=== PATIENT | male | born 1930 | race Caucasian/White ===

== ENCOUNTER 2017-02-14 20:50 | Inpatient (IN) ==
[2017-02-15] MEDS ORDERED: Naloxone 0.4 MG/ML INJ IVP PRN (00:11)
[2017-02-15] MEDS ORDERED: *HR* Dextrose 50 % in Water (Syg) 50 ML SYRINGE IVP PRN (00:15)
[2017-02-15] MEDS ORDERED: Dextrose Gel 15 GM PO PRN ×2 (00:15)
[2017-02-15] MEDS ORDERED: D5% in Water 1,000 ML IVC PRN (00:15)
[2017-02-15] MEDS ORDERED: *HR* HYDROcodone/Acet 5/325 mg TABLET PO PRN (00:23)
[2017-02-15] MEDS: 0.9 % Sodium Chloride 1,000 ML IVC SCH ×2 (00:48→14:28)
[2017-02-15 01:33] LABS: Eosinophils % 0.1 %; Hemoglobin 10.6 g/dL (12.9-16.9); Immature Granulocytes % 0.5 % (0-4); Immature Platelets 2.1 % (1.1-6.1); Lymphocytes # 0.7 K/mcL (0.6-4.6); Lymphocytes % 6.9 %; Mean Corpuscular HGB Conc 33.1 g/dL (31.6-35.5); Mean Corpuscular Hemoglobin 29.4 pg (28.0-33.3); Mean Corpuscular Volume 88.9 fL (83.0-100.0); Mean Platelet Volume 9.7 fL (9.4-12.4); Monocytes # 1.1 K/mcL (0.0-1.3); Monocytes % 11.5 %; Platelet Count 166 K/mcL (140-400)
[2017-02-15 01:44] LABS: Calcium 8.5 mg/dL (8.6-10.8); Potassium 4.3 mEq/L (3.5-4.5)
--- NOTE | 2017-02-15 04:12 | Internal Med History&Physical ---
Date of Encounter: 02/14/17 Time of Encounter: 23:30 Assessment and Plan (1) Sepsis Current visit: No Status: Acute Patient meet criteria of sepsis with tachycardia, fever. Has elevated lactate level. - Goal directed fluid resuscitation started in [facility]. - Lactate level decreased to 1.3 from 5.7 - Continue antibiotic treatment and IV fluid. - Follow up blood culture and urine culture Qualifiers: Sepsis type: sepsis due to unspecified organism Qualified Code(s): A41.9 - Sepsis, unspecified organism (2) Diabetes Current visit: Yes Status: Acute Will cover patient with sliding scale Qualifiers: Diabetes mellitus type: type 2 Diabetes mellitus complication status: without complication Diabetes mellitus group home insulin use: without parachute mender use Qualified Code(s): E11.9 - Type 2 diabetes mellitus without complications (3) CAD (coronary artery disease) Current visit: Yes Status: Acute Patient denies chest pain. Continue home medications. Qualifiers: Coronary Disease-Associated Artery/Lesion type: [place] artery [place] vs. transplanted heart: [place] heart Associated angina: without angina Qualified Code(s): I25.10 - Atherosclerotic heart disease of [place] coronary artery without angina pectoris (4) UTI (urinary tract infection) Current visit: No Status: Resolved Urinalysis shows UTI. Patient has symptoms of sepsis. Blood culture and urine cultures sent in [facility] emergency room. Patient has history of UTI, his previous urine culture resulted reviewed, sensitive to Rocephin. We will continue Rocephin 2000 mg IV daily and a follow-up urine culture. Qualifiers: Urinary tract infection type: catheter-associated UTI Indwelling urinary catheter type: indwelling urethral catheter Encounter type: initial encounter Qualified Code(s): T83.511A - Infection and inflammatory reaction due to indwelling urethral catheter, initial encounter; N39.0 - Urinary tract infection , site not specified (5) DVT prophylaxis Current visit: Yes Status: Acute Heparin subcutaneously Internal Medicine - H&P: HPI Chief complaint: Altered mental status, fever Admitted From: Long-term Nursing Facility Plans for Post Hospital Care: Transfer Custodial Facility History of present illness: Mr. Nevarez is a 86 year old male transferred from [facility] emergency room for UTI and urosepsis. Patient is a alf resident. Patient is a poor historian. History mainly obtained from transfer documentation. Patient was found to have fever and altered mental status today in alf. He will send her to [facility] ER and was found UTI. CT abdomen has been done, shows urolithiasis but to no signs of obstruction. Patient was treated with IV fluid and antibiotics. His condition has improved after treatment. Patient denies fever, shortness of breath, chest pain, nausea, or abdominal pain. Patient has dysuria. Patient was transferred to our hospital for further management. According to alf transfer documentation, patient is full code. Past Med Surg Social Fam HX - Past Medical History Medical history: coronary artery disease, diabetes, hyperlipidemia, hypertension , thyroid disease, other Psychiatric history: depression - Past Surgical History Surgical History: angioplasty/stent, other - Social History Smoking Status: Never smoker Smokeless Tobacco Status: No Alcohol use: none Drug use: none - Family History Father Adopted: No Living Status: Internal Medicine - H&P: Meds Cyanocobalamin (Vitamin B-12) [Vitamin B12] 1,000 mcg PO DAILY 07/02/16 [History ] Docusate Sodium [Colace] 100 mg PO DAILY 07/02/16 [History] Gabapentin [Neurontin] 300 mg PO TID 07/02/16 [History] Isosorbide DInitrate [Isosorbide Dinitrate] 30 mg PO DAILY 07/02/16 [History] Melatonin 3 mg PO HS 07/02/16 [History] Sertraline [Zoloft] 50 mg PO DAILY 07/02/16 [History] Simvastatin [Zocor] 20 mg PO HS 07/02/16 [History] metFORMIN [Glucophage] 500 mg PO 0800 07/02/16 [History] Ergocalciferol (VITAMIN D2) [Vitamin D2] 50,000 unit PO QWEEK 11/02/16 [History] HYDROcodone/Acet 5/325 mg [[place] 5-325 mg] 1 tab PO Q6H PRN 11/02/16 [History] Iron Polysaccharide Complex [Ferrex 150] 150 mg PO DAILY 11/02/16 [History] Aspirin [Lo-Dose Aspirin EC] 81 mg PO DAILY 02/14/17 [History] Atorvastatin Calcium [Lipitor] 20 mg PO 02/14/17 [History] 3 Allergy/AdvReac Type Severity Reaction Status Date / Time Penicillins Allergy Rash Verified 11/02/16 21:08 All Systems PM: A 10-system review of systems was performed and is negative for pertinent findings except as documented above in the HPI. - Constitutional Vitals: Temp Pulse Resp BP Pulse Ox 100.1 F H 90 20 98/67 93 02/14/17 22:34 02/14/17 22:34 02/14/17 22:34 02/14/17 22:34 02/14/17 22:34 General appearance: Present: A&O X 1, no acute distress - Head Head exam: Present: atraumatic, normocephalic - Eye Eye exam: Present: PERRL, conjuntiva pink, sclera anicteric Pupils: Present: PERRL - Neck Neck exam general surgery: Present: supple, trachea midline. Absent: lymphadenopathy - Respiratory Respiratory exam: Present: CTAB. Absent: accessory muscle use, rales, rhonchi, wheezes - Cardiovascular Cardiovascular exam: Present: RRR, +S1, +S2. Absent: diastolic murmur, gallop, rubs, systolic murmur - GI/Abdominal GI/Abdominal exam: Present: normal bowel sounds, soft, no peritoneal signs. Absent: distended, tenderness - Extremities Exam Extremities exam: Present: warm, radial pulses palpable and symmetrical. Absent : calf tenderness, cyanotic, pedal edema - Neurological Exam Neurological exam: Present: CN II-XII intact, oriented X3, no focal deficits. Absent: pronater drift, facial droop, speech deficit - Skin Skin exam: Present: dry, intact Internal Med - H&P Results - Labs CBC & Chem 7: 02/15/17 01:24 02/15/17 01:24 Labs: Short CBC 02/15/17 Range/Units 01:24 WBC 9.9 D (4.3-11.1) K/mcL Hgb 10.6 L D (12.9-16.9) g/dL Hct 32.0 L (37.5-50.1) % Plt Count 166 (140-400) K/mcL Neutrophils # 8.0 (1.6-8.9) K/mcL BMP 02/15/17 01:24 Sodium 139 Potassium 4.3 Chloride 109 Carbon Dioxide 22 BUN 39 H Creatinine 1.40 H Glucose 155 H Calcium 8.5 L - EKG Data -: EKG Interpreted by Myself EKG shows normal: sinus rhythm Rate: tachycardia
[2017-02-15] MEDS: *HR* Heparin 5,000 UNIT/ML VIAL SQ SCH ×2 (05:51→16:43)
[2017-02-15] MEDS: Insulin LISPRO 300 UNITS/3 ML VIAL SQ SCH ×4 (09:44→21:44)
[2017-02-15] MEDS: Aspirin Enteric Coated 81 MG Tablet PO SCH (09:48)
[2017-02-15] MEDS: Isosorbide MONOnitrate (24 HR) 30 MG TAB.ER.24H PO SCH (09:48)
[2017-02-15] MEDS: Iron Polysaccharide Complex 150 MG CAPSULE PO SCH (09:48)
[2017-02-15] MEDS: Cyanocobalamin (B-12) 1,000 MCG TABLET PO SCH (09:48)
[2017-02-15] MEDS: Gabapentin 300 MG CAPSULE PO SCH ×3 (09:48→20:07)
--- NOTE | 2017-02-15 10:19 | Event Note ---
Date of Encounter: 02/15/17 Time of Encounter: 09:45 85-year-old male admitted early this morning after he presented with urinary tract infection to [facility] emergency room from senior care. Patient was found to have altered mental status in the senior care. Patient was admitted and has been given intravenous fluids and antibiotics. Currently, patient reports that he is feeling well. He denies any nausea or vomiting, abdominal pain, diarrhea or constipation. He denies any chest pain or difficult breathing. On exam, clear breath sounds bilaterally. No tenderness to palpation over the abdomen. Sotomayor catheter in place. Labs reviewed. Assessment/plan: 1. Urinary tract infection-continue intravenous cefazolin. Continue intravenous fluids. Follow-up urine culture sensitivities and adjust antibiotics accordingly. Patient is high risk due to need for intravenous antibody therapy and risk of sepsis and septic shock. 2. Patient did not have sepsis on admission. 3. Coronary artery disease 4. Diabetes mellitus type 2
[2017-02-15] MEDS: Melatonin 3 MG TABLET PO SCH (20:07)
[2017-02-16] MEDS: 0.9 % Sodium Chloride 1,000 ML IVC SCH (03:14)
[2017-02-16] MEDS: *HR* Heparin 5,000 UNIT/ML VIAL SQ SCH ×2 (05:22→17:07)
[2017-02-16] MEDS: Insulin LISPRO 300 UNITS/3 ML VIAL SQ SCH ×4 (10:05→21:22)
[2017-02-16] MEDS ORDERED: Ondansetron 4 MG/2 ML VIAL IVP PRN (10:07)
[2017-02-16] MEDS: Iron Polysaccharide Complex 150 MG CAPSULE PO SCH (11:17)
[2017-02-16] MEDS: Isosorbide MONOnitrate (24 HR) 30 MG TAB.ER.24H PO SCH (11:17)
[2017-02-16] MEDS: Cyanocobalamin (B-12) 1,000 MCG TABLET PO SCH (11:17)
[2017-02-16] MEDS: Gabapentin 300 MG CAPSULE PO SCH ×3 (11:17→21:20)
[2017-02-16] MEDS: Aspirin Enteric Coated 81 MG Tablet PO SCH (11:17)
[2017-02-16] MEDS: Acetaminophen 325 MG TABLET PO PRN (11:41)
--- NOTE | 2017-02-16 12:41 | Internal Med Progress Note ---
Date of Encounter: 02/16/17 Time of Encounter: 12:00 - Assessment and plan (1) UTI (urinary tract infection) Current Visit: Yes Status: Acute Assessment and plan: Due to proteus mirabilis Associated with Proteus bacteremia Continue rocephin Eventual PO abx. Total duration of 2 weeks. Moderate risk due to need for iv abx and close monitoring. Qualifiers: Urinary tract infection type: catheter-associated UTI Indwelling urinary catheter type: indwelling urethral catheter Encounter type: initial encounter Qualified Code(s): T83.511A - Infection and inflammatory reaction due to indwelling urethral catheter, initial encounter; N39.0 - Urinary tract infection , site not specified (2) BALA (acute kidney injury) Current Visit: Yes Status: Acute Assessment and plan: Likely due to dehydration. Patient received intravenous fluids yesterday. Monitor renal function, urine output. Avoid hypotension and nephrotoxic medications. (3) CAD (coronary artery disease) Current Visit: Yes Status: Chronic Assessment and plan: Stable. Continue current medications. Qualifiers: Coronary Disease-Associated Artery/Lesion type: [place] artery [place] vs. transplanted heart: [place] heart Associated angina: without angina Qualified Code(s): I25.10 - Atherosclerotic heart disease of [place] coronary artery without angina pectoris (4) Diabetes Current Visit: Yes Status: Chronic Assessment and plan: Controlled blood sugar. Continue current medications. Qualifiers: Diabetes mellitus type: type 2 Diabetes mellitus complication status: without complication Diabetes mellitus extermination inspector insulin use: without prison use Qualified Code(s): E11.9 - Type 2 diabetes mellitus without complications - Subjective Interval history: Patient reports lower abdominal pain. Denies nausea, vomiting. He is not aware of his last bowel movement. He denies any shortness of breath, cough or wheezing. - Constitutional Vitals: Temp Pulse Resp BP Pulse Ox 98.5 F 64 16 161/86 98 02/16/17 11:35 02/16/17 11:35 02/16/17 11:35 02/16/17 11:35 02/16/17 11:35 General appearance: Present: A&O X 1, mild distress, pleasant Exam: Gen.: Lying in bed. Mild distress. Chest: Clear to auscultation bilaterally. No adventitious sounds present. CVS: First and second heart sounds present. No murmurs, rubs or gallops. Abdomen: Soft, tender to palpation in the right and left lower quadrants without rebound tenderness, guarding or rigidity; nondistended. Bowel sounds present. No hepatosplenomegaly. Skin: No decubitus ulcers appreciated. Internal Medicine: Result - Labs CBC & Chem 7: 02/15/17 01:24 02/15/17 01:24 Consult Discharge Plan - Plan Referrals: Aleisha Kelley MD [Primary Care Provider] -
[2017-02-16] MEDS: Sennosides/Docusate Sodium TABLET PO SCH ×2 (13:08→21:20)
[2017-02-16] MEDS: Melatonin 3 MG TABLET PO SCH (21:20)
[2017-02-17 03:23] LABS: Basophils % 0.2 %; Eosinophils # 0.2 K/mcL (0.0-0.6); Eosinophils % 3.1 %; Hematocrit 32.7 % (37.5-50.1); Hemoglobin 10.8 g/dL (12.9-16.9); Immature Granulocytes % 0.4 % (0-4); Lymphocytes # 0.7 K/mcL (0.6-4.6); Lymphocytes % 13.8 %; Mean Corpuscular Hemoglobin 29.1 pg (28.0-33.3); Mean Corpuscular Volume 88.1 fL (83.0-100.0); Monocytes # 0.5 K/mcL (0.0-1.3); Monocytes % 10.2 %; Neutrophils # 3.5 K/mcL (1.6-8.9); Platelet Count 160 K/mcL (140-400); Red Blood Count 3.71 M/mcL (4.19-5.50); Segmented Neutrophils % 72.3 %
[2017-02-17 03:33] LABS: BUN/Creatinine Ratio 23 (6-26); Calcium 9.4 mg/dL (8.6-10.8); Carbon Dioxide 25 mEq/L (19-29); Chloride 109 mEq/L (98-109); Glucose 121 mg/dL (70-99); Osmolality,Calculated 299 (280-300); Potassium 4.2 mEq/L (3.5-4.5); Sodium 142 mEq/L (136-145); eGFR For African Americans > 60 (> 60); eGFR For Non-African Americans > 60 (> 60)
[2017-02-17 03:42] LABS: Blood Urea Nitrogen 23 mg/dL (8-26)
[2017-02-17] MEDS: *HR* Heparin 5,000 UNIT/ML VIAL SQ SCH (05:11)
[2017-02-17 07:22] VITALS: BP 167/92
[2017-02-17] MEDS: Insulin LISPRO 300 UNITS/3 ML VIAL SQ SCH ×2 (08:14→15:04)
[2017-02-17] MEDS: Iron Polysaccharide Complex 150 MG CAPSULE PO SCH (09:33)
[2017-02-17] MEDS: Aspirin Enteric Coated 81 MG Tablet PO SCH (09:33)
[2017-02-17] MEDS: Sennosides/Docusate Sodium TABLET PO SCH (09:33)
[2017-02-17] MEDS: Isosorbide MONOnitrate (24 HR) 30 MG TAB.ER.24H PO SCH (09:33)
[2017-02-17] MEDS: Gabapentin 300 MG CAPSULE PO SCH ×2 (09:34→15:08)
[2017-02-17] MEDS: Cyanocobalamin (B-12) 1,000 MCG TABLET PO SCH (09:34)
[2017-02-17] MEDS ORDERED: MOM Conc 10 ML UD.LIQ PO ONE (09:42)
[2017-02-17] MEDS: Acetaminophen 325 MG TABLET PO PRN (11:33)
[2017-02-17] MEDS ORDERED: amLODIPine 5 MG TABLET PO SCH (11:45)
--- NOTE | 2017-02-17 12:13 | Discharge Summary ---
Date of Encounter: 02/17/17 Time of Encounter: 10:30 - Discharge Diagnosis (1) UTI (urinary tract infection) Priority: Primary Status: Acute Qualifiers: Urinary tract infection type: catheter-associated UTI Indwelling urinary catheter type: indwelling urethral catheter Encounter type: initial encounter Qualified Code(s): T83.511A - Infection and inflammatory reaction due to indwelling urethral catheter, initial encounter; N39.0 - Urinary tract infection , site not specified (2) BALA (acute kidney injury) Priority: Secondary Status: Resolved (3) CAD (coronary artery disease) Priority: Secondary Status: Chronic Qualifiers: Coronary Disease-Associated Artery/Lesion type: [place] artery [place] vs. transplanted heart: [place] heart Associated angina: without angina Qualified Code(s): I25.10 - Atherosclerotic heart disease of [place] coronary artery without angina pectoris (4) Diabetes Priority: Secondary Status: Chronic Qualifiers: Diabetes mellitus type: type 2 Diabetes mellitus complication status: without complication Diabetes mellitus manager terminal insulin use: without correction use Qualified Code(s): E11.9 - Type 2 diabetes mellitus without complications - Discharge Medications Prescriptions: amLODIPine [Norvasc] 5 mg PO DAILY #60 tab Cefdinir [Omnicef] 300 mg PO BID #24 capsule Polyethylene Glycol 3350 [MiraLAX] 17 gm PO DAILY #30 Sennosides/Docusate Sodium [Senna Plus] 2 each PO BID #100 tab Home Medications: Cyanocobalamin (Vitamin B-12) [Vitamin B12] 1,000 mcg PO DAILY 07/02/16 [History ] Gabapentin [Neurontin] 300 mg PO TID 07/02/16 [History] Melatonin 3 mg PO HS 07/02/16 [History] Sertraline [Zoloft] 50 mg PO DAILY 07/02/16 [History] Ergocalciferol (VITAMIN D2) [Vitamin D2] 50,000 unit PO QWEEK 11/02/16 [History] HYDROcodone/Acet 5/325 mg [[place] 5-325 mg] 1 tab PO TID 11/02/16 [History] Iron Polysaccharide Complex [Ferrex 150] 150 mg PO DAILY 11/02/16 [History] Aspirin [Lo-Dose Aspirin EC] 81 mg PO DAILY 02/14/17 [History] Atorvastatin Calcium [Lipitor] 20 mg PO HS 02/14/17 [History] Isosorbide MONOnitrate (24 HR) [Imdur] 30 mg PO DAILY 02/16/17 [History] Cefdinir [Omnicef] 300 mg PO BID #24 capsule 02/17/17 [Rx] Polyethylene Glycol 3350 [MiraLAX] 17 gm PO DAILY #30 02/17/17 [Rx] Sennosides/Docusate Sodium [Senna Plus] 2 each PO BID #100 tab 02/17/17 [Rx] amLODIPine [Norvasc] 5 mg PO DAILY #60 tab 02/17/17 [Rx] metFORMIN [Glucophage] 500 mg PO BID #0 02/17/17 [Rx] Allergies/Adverse Reactions: 3 Allergy/AdvReac Type Severity Reaction Status Date / Time Penicillins Allergy Rash Verified 11/02/16 21:08 Date of admission: 02/15/17 00:11 Primary care physician: Aleisha Kelley Consults: 02/15/17 16:28 Consult to Product Marketing Analyst [CONS] Routine Reason for SW Consult: [facility] to [facility] Discharging clinician: Juice Canada Anticipated date of discharge: 02/17/17 - Patient Status Disposition: Transfer SNF Condition: Good Functional capacity at discharge: independent ambulation Overall status at discharge: patient is progressing back to baseline - Discharge Instructions Follow Up With: Aleisha Kelley MD [Primary Care Provider] - - Diet and Activity Activity: as per physical therapy, increase activity as tolerated, resume usual activities as tolerated Diet: advance to your usual diet Hospital course: Mr. Nevarez is a 86 year old male with a history of coronary artery disease who was transferred to [facility] from [facility] emergency room due to urinary tract infection. Patient is a resident of a skilled nursing. He was transferred to [facility] emergency department due to fever and altered mental status. The patient was admitted to [facility] with a diagnosis of urinary tract infection. He was placed on cefazolin. Urine and blood cultures were sent. Both of them were positive for Klebsiella pneumonia. Hence, the patient had repeat blood cultures performed to document clearance of bacteremia. Repeat blood cultures have been negative on antibiotics. The patient has been changed to by mouth antibiotics and will need to finish a 14 day course of antibiotics due to his Klebsiella bacteremia and UTI. He has been doing well without any further episodes of fevers, chills or leukocytosis. Hence, he has been deemed stable to be discharged back to the skilled nursing. - Time Spent with Patient Total time spent providing and/or coordinating discharge services: Greater than 30 minutes (50 min) - Constitutional Vitals: Temp Pulse Resp BP Pulse Ox 98.5 F 68 17 167/92 98 02/17/17 05:00 02/17/17 07:00 02/17/17 07:00 02/17/17 07:00 02/17/17 10:00 General appearance: Present: pleasant Exam: Gen.: Lying in bed. No acute distress. Chest: Clear to auscultation bilaterally. No adventitious sounds present. CVS: First and second heart sounds present. No murmurs, rubs or gallops.
--- NOTE | 2017-02-17 12:17 | Physician Discharge Referral ---
ExtendedCare Referral Info Transfer To: SNF Provider in Charge: Dr. Juice Canada Provider in Charge after Transfer: PCP Institutional Level of Care: Skilled - Diagnosis (1) UTI (urinary tract infection) Priority: Primary Status: Acute (2) BALA (acute kidney injury) Priority: Secondary Status: Resolved (3) CAD (coronary artery disease) Priority: Secondary Status: Chronic (4) Diabetes Priority: Secondary Status: Chronic Expected Duration of Placement: 3 weeks Prognosis: Fair - Transfer Medications Prescriptions: amLODIPine [Norvasc] 5 mg PO DAILY #60 tab Cefdinir [Omnicef] 300 mg PO BID #24 capsule Polyethylene Glycol 3350 [MiraLAX] 17 gm PO DAILY #30 Sennosides/Docusate Sodium [Senna Plus] 2 each PO BID #100 tab Home Medications: Cyanocobalamin (Vitamin B-12) [Vitamin B12] 1,000 mcg PO DAILY 07/02/16 [History ] Gabapentin [Neurontin] 300 mg PO TID 07/02/16 [History] Melatonin 3 mg PO HS 07/02/16 [History] Sertraline [Zoloft] 50 mg PO DAILY 07/02/16 [History] Ergocalciferol (VITAMIN D2) [Vitamin D2] 50,000 unit PO QWEEK 11/02/16 [History] HYDROcodone/Acet 5/325 mg [[place] 5-325 mg] 1 tab PO TID 11/02/16 [History] Iron Polysaccharide Complex [Ferrex 150] 150 mg PO DAILY 11/02/16 [History] Aspirin [Lo-Dose Aspirin EC] 81 mg PO DAILY 02/14/17 [History] Atorvastatin Calcium [Lipitor] 20 mg PO HS 02/14/17 [History] Isosorbide MONOnitrate (24 HR) [Imdur] 30 mg PO DAILY 02/16/17 [History] Cefdinir [Omnicef] 300 mg PO BID #24 capsule 02/17/17 [Rx] Polyethylene Glycol 3350 [MiraLAX] 17 gm PO DAILY #30 02/17/17 [Rx] Sennosides/Docusate Sodium [Senna Plus] 2 each PO BID #100 tab 02/17/17 [Rx] amLODIPine [Norvasc] 5 mg PO DAILY #60 tab 02/17/17 [Rx] metFORMIN [Glucophage] 500 mg PO BID #0 02/17/17 [Rx] Allergies/Adverse Reactions: 3 Allergy/AdvReac Type Severity Reaction Status Date / Time Penicillins Allergy Rash Verified 11/02/16 21:08 - Respiratory Orders Smoking Cessation: Smoking cessation has been advised. For more information, call the [place] Tobacco Quit Line at 4-394-JMMO-NOW. - Ancillary Orders May use pressure relief devices daily prn, May go on ANDREW w/family/respon constitution party w /meds at nurse discretion PRN, May consult with Dentist, Senior Managing Director, Hardboard Factory Worker PRN - Advance Directives Code Status: Full Code - Mobility Orders Chair, Ambulate - Rehabiliation Orders Rehab Potential: Good Rehab Orders: Sternal Precautions, ROM Exercises, Evaluation for Physical Therapy, Evaluation for Occupational Therapy - Treatments Skin tear care topically daily PRN per policy, May check for fecal impaction rectally daily PRN, Fleet enema rectally every other day PRN cleansing purposes - Diet Orders No Added Salt (ROSEY), No Concentrated Sweets CERTIFICATION: I certify that the transfer of the above named patient to an Extended Care Facility is necessary for the continuing treatment of the diagnosis listed. The above information is true and accurate reflection of patient's current condition. Confidential - Redisclosure prohibited without a patient's written consent.
== END 2017-02-17 17:50 | DRG 466 ==
LOC: 2NENU
PROVIDERS: ADMIT Internal Medicine; ATTEND Internal Medicine Sleep Medicine